=== PATIENT | female | born 1950 | race African-American/Black ===

== ENCOUNTER → 2017-05-07 | Outpatient (CLI) | payer OTHER ==
[~2017-05-07] MED LIST: FUROSEMIDE 100 MG/10 ML VIAL.; IV NORMAL SALINE 50ML 50 ML
== END | disposition home or self-care (01) ==
LOC: PCVCINTER 08:53
DX: R06.02 Shortness of breath (principal); E11.40 Type 2 diabetes mellitus with diabetic neuropathy, unspecified; Z79.82 Long term (current) use of aspirin; Z79.4 Long term (current) use of insulin
CPT/HCPCS: J1940